=== PATIENT | female | born 1975 | race Hispanic/Latino ===

== ENCOUNTER 2020-07-06 14:30 | Outpatient (CLI) | payer BC, SELFPAY ==
--- NOTE | ~2020-07-06 | MM_ITS ---
EXAMINATION: MM screening [facility] w arcelia HISTORY: Screening mammogram TECHNIQUE: Craniocaudal and mediolateral oblique 3-D tomosynthesis images were obtained and synthetic 2-D images were generated. CAD analysis was submitted and interpreted. COMPARISON: 06/21/2019 bilateral digital screening mammogram 03/13/2018 bilateral diagnostic digital mammogram BREAST PARENCHYMAL COMPOSITION: There are scattered areas of fibroglandular density. FINDINGS: There is no evidence of suspicious mass, calcification, or architectural distortion to sugg est malignancy in either breast. There has been no suspicious interval change. IMPRESSION: 1. No mammographic evidence of malignancy. 2. Recommend routine screening mammography in one year. BI-RADS Category 1: Negative Reviewed, dictated and finalized at location A. MAKER
== END 2020-07-06 14:31 | disposition home or self-care (01) ==
LOC: ANHIMG 14:35
PROVIDERS: PCP Registered Nurse; Visit Provider Registered Nurse
DX: Z12.31 Encounter for screening mammogram for malignant neoplasm of breast (principal)
CPT/HCPCS: 77063; 77067

== ENCOUNTER 2021-08-05 15:03 | Outpatient (CLI) | payer BC, SELFPAY ==
--- NOTE | ~2021-08-05 | MM_ITS ---
EXAMINATION: MM screening [facility] BI w arcelia HISTORY: Screening mammogram TECHNIQUE: Craniocaudal and mediolateral oblique 3-D tomosynthesis images were obtained and synthetic 2-D images were generated. CAD analysis was submitted and interpreted. COMPARISON: 07/06/2020, 07/01/2019, 03/13/2018 BREAST PARENCHYMAL COMPOSITION: There are scattered areas of fibroglandular density. FINDINGS: There is no evidence of suspicious mass, calcification, or architectural distortion to sugg est malignancy in either breast. There has been no suspicious interval change. IMPRESSION: 1. No mammographic evidence of malignancy. 2. Recommend routine screening mammography in one year. BI-RADS Category 1: Negative Reviewed, dictated and finalized at location A. R CASE DETECTIVE
== END 2021-08-05 15:04 | disposition home or self-care (01) ==
LOC: ANHIMG 15:04
PROVIDERS: PCP Registered Nurse; Visit Provider Registered Nurse
DX: Z12.31 Encounter for screening mammogram for malignant neoplasm of breast (principal)
CPT/HCPCS: 77063; 77067

== ENCOUNTER 2022-02-07 18:23 | Emergency (ER) | payer BC, SELFPAY ==
[2022-02-07 18:47] VITALS: BP 128/76; PULSE 66; RESP 20; TEMP 36.5; O2SAT 99
--- NOTE | 2022-02-07 18:51 | ED.EAR ---
HPI - Ear Problem General Chief complaint: Ear Stated complaint: Ear Pain Time Seen by Provider: 02/07/22 18:51 Source: patient Mode of arrival: ambulatory Limitations: no limitations History of Present Illness HPI Narrative: 46-year-old female present for complaint of bilateral ear pain, right greater than left for 3 days. Endorses occasional dizziness and sinus pressure. Reports small amount right ear drainage in the night. Has been taking Zyrtec and Flonase for sinus congestion. She denies headache, nausea, vomiting, fevers or chills. Has not been swimming. MD Complaint: ear pain Related Data Home Medications Medication Instructions Recorded Confirmed levothyroxine 25 mcg tablet 1 tablet PO DAILY 02/07/22 02/07/22 omeprazole 20 mg capsule,delayed 1 cap PO DAILY 02/07/22 02/07/22 release propranolol 60 mg tablet 60 tablet PO DAILY 02/07/22 02/07/22 valacyclovir 1 gram tablet 1 tablet PO DIRECTED 02/07/22 02/07/22 Allergies Allergy/AdvReac Type Severity Reaction Status Date / Time No Known Allergies Allergy Verified 02/07/22 18:43 Review of Systems Review of Systems: CONSTITUTIONAL: Denies malaise, chills, or fever. EYES: Denies visual changes, redness, or discharge. ENT: Denies rhinorrhea, congestion, sinus pain, and sore throat. Reports ear pain CARDIOVASCULAR: Denies chest pain, palpitations, or edema. MUSCULOSKELETAL: Denies myalgia. NEUROLOGIC: Denies headache. All systems reviewed & are unremarkable except as noted in HPI and below PMFSH Comments At time of signature, agree with nursing past medical, surgical, social and family history. There is no relevant family history pertinent to the presenting complaint Exam Narrative: GENERAL: Well-appearing EYES: conjunctivae clear ENT: Nares clear. Mucous membranes moist. Right TM unable to visualize due to purulent discharge. tender canal; Left TM pearly davies with dull light reflex; no tragal tenderness. Oropharynx not erythematous without lesions. Tonsils not enlarged and without exudate, no drooling, no hoarseness, no trismus, uvula midline. NECK: Supple. No lymphadenopathy CHEST: Clear to auscultation, breath sounds equal. No wheezing, rhonchi, rales, or stridor. No respiratory distress, speaks in full sentences. HEART: Regular rate and rhythm. No murmur heard. SKIN: Warm, dry, no rash. NEURO: Alert and oriented x3. PSYCH: Normal mood and affect Course Course Emergency Course: Patient is aware of diagnosis, understands and agrees to treatment plan. Anticipatory guidance given. Patient agrees to follow-up as directed and is aware of reasons to seek care at the emergency department. Portions of this record may have been created with voice recognition software Level of Care: Express Care Visit Vital Signs Vital signs: Vital Signs Temperature 97.7 F 02/07/22 18:47 Pulse Rate 66 02/07/22 18:47 Respiratory Rate 20 02/07/22 18:47 Blood Pressure 128/76 02/07/22 18:47 Pulse Oximetry 99 02/07/22 18:47 Oxygen Delivery Room Air 02/07/22 18:47 Temperature 97.7 F 02/07/22 18:47 Pulse Rate 66 02/07/22 18:47 Respiratory Rate 20 02/07/22 18:47 Blood Pressure 128/76 02/07/22 18:47 Pulse Oximetry 99 02/07/22 18:47 Oxygen Delivery Room Air 02/07/22 18:47 Reviewed Medical Decision Making MDM Narrative Medical decision making narrative: Exam findings c/w EO; patient is non-toxic appearing and is in no distress. Patient is appropriate for outpatient treatment and follow-up with pcp, v/u. Differential Diagnosis Differential Diagnosis: allergic rhinitis, upper respiratory tract infection, sinusitis, rhinosinusitis, nasopharyngitis, viral pharyngitis, otitis media, otitis externa, eustachian tube dysfunction, foreign body, cerumen impaction. Vital Signs Vital Signs: Vital Signs Temperature 97.7 F 02/07/22 18:47 Pulse Rate 66 02/07/22 18:47 Respiratory Rate 02/07/22 18:47 Blood Pressure 128/
== END 2022-02-07 19:07 | disposition home or self-care (01) ==
PROVIDERS: Emergency Provider Nurse Practitioner Family; PCP Registered Nurse
DX: H60.91 Unspecified otitis externa, right ear (principal)
CPT/HCPCS: 99213; G0463

== ENCOUNTER 2022-11-10 17:43 | Outpatient (CLI) | payer BC, SELFPAY ==
--- NOTE | ~2022-11-10 | MM_ITS ---
EXAMINATION: MM screening [facility] BI w arcelia HISTORY: Screening TECHNIQUE: Craniocaudal and mediolateral oblique 3-D tomosynthesis images were obtained and synthetic 2-D images were generated. CAD analysis was submitted and interpreted. COMPARISON: Comparison to multiple prior studies sequentially, with oldest reviewed study dated 03/13. BREAST PARENCHYMAL COMPOSITION: There are scattered areas of fibroglandular density. FINDINGS: There is no evidence of suspicious mass, calcification, or architectural distortion to sugg est malignancy in either breast. There has been no suspicious interval change. IMPRESSION: 1. No mammographic evidence of malignancy. 2. Recommend routine screening mammography in one year. BI-RADS Category 1: Negative Reviewed, dictated and finalized at location A.
== END 2022-11-10 17:44 | disposition home or self-care (01) ==
PROVIDERS: PCP Registered Nurse; Visit Provider Registered Nurse
DX: Z12.31 Encounter for screening mammogram for malignant neoplasm of breast (principal)
CPT/HCPCS: 77063; 77067

== ENCOUNTER 2023-06-10 09:38 | Outpatient (CLI) | payer BC, SELFPAY ==
--- NOTE | ~2023-06-10 | XR_ITS ---
XR chest 1V DATE: 06/10/2023 09:54 INDICATION: Palpitations TECHNIQUE: PA chest COMPARISON: None FINDINGS: Normal heart size. No hilar or mediastinal enlargement. The lungs are normally inflated and clear of infiltrate or consolidation. No pleural effusion or pulmonary vascular congestion or pneumo thorax. There appear to be some surgical clips overlying the right upper quadrant at the very lower margin of the radiograph, possibly due to cholecystectomy. Degenerative spurring of the thoracic spine. IMPRESSION: No active cardiopulmonary disease Reviewed, dictated and finalized at location A.
== END 2023-06-10 09:39 | disposition home or self-care (01) ==
PROVIDERS: PCP Registered Nurse; Visit Provider Registered Nurse
DX: R00.2 Palpitations (principal)
CPT/HCPCS: 71045; 93005

== ENCOUNTER 2023-06-10 10:04 | Outpatient (CLI) | payer BC, SELFPAY ==
--- NOTE | 2023-06-10 10:16 | ECG_ITS ---
Measurements Intervals [place] Rate: 52 P: -2 WI: 161 QRS: 25 QRSD: 102 T: 18 QT: 431 QTc: 401 Interpretive Statements SINUS BRADYCARDIA BORDERLINE ECG NO PREVIOUS ECG AVAILABLE FOR COMPARISON Electronically Signed On 06-10-2023 14:41:12 CDT by Carlos King M.D.
== END 2023-06-10 10:05 | disposition home or self-care (01) ==
LOC: ANHLAB 10:06
PROVIDERS: PCP Registered Nurse; Visit Provider Registered Nurse
DX: R93.1 Abnormal findings on diagnostic imaging of heart and coronary circulation (principal); R00.2 Palpitations
CPT/HCPCS: 93005